=== PATIENT | male | born 1995 | race Caucasian/White ===

== ENCOUNTER 2020-11-15 10:26 | Emergency (ER) | payer BC, OTHER ==
[2020-11-15] MEDS: Lidocaine 1% with EPINEPHrine 1:100,000 20 ML MDV INJECT ONE (11:00)
[2020-11-15] MEDS: Lidocaine 1% with EPINEPHrine 1:100,000 20 ML MDV ONE (11:01)
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
[2020-11-15] MEDS: Sodium Chloride 0.9% 50 ML IV SCH (11:24)
[2020-11-15] MEDS: Iopamidol 755 Mg/ML 75 ML Bottle IVPUSH ONE (11:24)
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
== END 2020-11-15 13:15 | disposition home or self-care (01) ==
LOC: KA.ED 10:26
DX: S31.112A Laceration without foreign body of abdominal wall, epigastric region without penetration into peritoneal cavity, initial encounter (principal); W26.0XXA Contact with knife, initial encounter; Y99.0 Civilian activity done for income or pay
CPT/HCPCS: 12002; 74177; 99283; 99283-25; Q9967

== ENCOUNTER 2021-04-16 19:05 | Emergency (ER) | payer BC, OTHER ==
[2021-04-16] MEDS ORDERED: Sodium Chloride 0.9% 1,000 ML ONE (19:15)
[2021-04-16] MEDS ORDERED: HYDROmorphone 1 MG/ML Syringe ONE (19:15)
[2021-04-16] MEDS ORDERED: Lidocaine 1% with EPINEPHrine 1:100,000 10 ML MDV INJECT ONE (19:20)
[2021-04-16] MEDS ORDERED: Sodium Chloride 0.9% 1,000 ML IV ONE (19:20)
[2021-04-16] MEDS ORDERED: HYDROmorphone 1 MG/ML Syringe IVPUSH ONE ×2 (19:20→20:20)
[2021-04-16] MEDS ORDERED: Lidocaine 1% with EPINEPHrine 1:100,000 10 ML MDV ONE (19:29)
[2021-04-16] MEDS ORDERED: Diphtheria,Pertussis(Acell),Tetanus Vaccine 0.5 ML Syringe IM ONE (20:01)
[2021-04-16] MEDS ORDERED: Bacitracin/Neomycin/Polymyxin B Oint 28.4 GM Tube ONE (20:24)
[2021-04-16] MEDS ORDERED: Cephalexin 250 MG Cap ONE (20:25)
[2021-04-16] MEDS ORDERED: Bacitracin/Neomycin/Polymyxin B Oint 0.9 GM U/D Packet TOP ONE (20:30)
[2021-04-16] MEDS ORDERED: Cephalexin 250 MG Cap PO ONE (20:43)
--- NOTE | 2021-04-16 20:45 | EDM.PDOC ---
ED HPI GENERAL MEDICAL PROBLEM - General Chief Complaint: General Stated Complaint: LACERATION HAND Time Seen by Provider: 04/16/21 19:10 Source of Information: Reports: Patient, Family (mom) History Limitations: Reports: No Limitations - History of Present Illness INITIAL COMMENTS - FREE TEXT/NARRATIVE: Patient presents with laceration of left hand. 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 It bled quite a bit and he feels like he has some decreased sensation distal to the cut. No LOC or other injuries. Last tetanus was 5 years ago. Left Hand Pain Score (Numeric/FACES): 10 - Related Data Allergies Allergy/AdvReac Type Severity Reaction Status Date / Time Bleach (Sodium Hypochlorite) Allergy Rash Verified 04/16/21 19:20 soap Allergy Rash Verified 04/16/21 19:20 albuterol syrup Allergy Rash Uncoded 04/16/21 19:20 Home Meds: Home Meds Fexofenadine/Pseudoephedrine [Puja-D 24 Hour Tablet] 1 each PO DAILY PRN 04/16/21 [History] Fluticasone Propionate [Flonase] 1 spray NASBOTH BEDTIME PRN 04/16/21 [History] Multivitamin 1 each PO DAILY 04/16/21 [History] Past Medical History HEENT History: Reports: None Cardiovascular History: Reports: None Respiratory History: Reports: None Gastrointestinal History: Reports: GERD Genitourinary History: Reports: None Musculoskeletal History: Reports: None Neurological History: Reports: None Psychiatric History: Reports: None Endocrine/Metabolic History: Reports: None Hematologic History: Reports: None Immunologic History: Reports: None Oncologic (Cancer) History: Reports: None Dermatologic History: Reports: None - Infectious Disease History Infectious Disease History: Reports: None - Past Surgical History Head Surgeries/Procedures: Reports: None Musculoskeletal Surgical History: Reports: Other (See Below) Other Musculoskeletal Surgeries/Procedures:: rt arm fracture as a child Social & Family History - Caffeine Use Caffeine Use: Reports: Soda ED ROS GENERAL - Review of Systems Review Of Systems: Comprehensive ROS is negative, except as noted in HPI. ED EXAM, GENERAL - Physical Exam Exam: See Below Exam Limited By: No Limitations General Appearance: Alert, WD/WN, No Apparent Distress Eye Exam: Bilateral Eye: EOMI, Normal Inspection, PERRL Ears: Normal External Exam, Hearing Grossly Normal Nose: Normal Inspection, No Blood Throat/Mouth: Normal Inspection, Normal Lips, Normal Voice, No Airway Compromise Head: Atraumatic, Normocephalic Neck: Normal Inspection, Full Range of Motion Respiratory/Chest: No Respiratory Distress, Lungs Clear, Normal Breath Sounds, No Accessory Muscle Use Cardiovascular: Regular Rate, Rhythm, No Murmur Back Exam: Normal Inspection, Full Range of Motion Extremities: Normal Range of Motion, Normal Capillary Refill, Other (5 cm laceration of ulnar border of left hand palmar side. Resisted pinky flexion and extension and ROM are good. Sensation is decreased but present distal to laceration.) Neurological: Alert, Oriented, Normal Cognition Psychiatric: Normal Affect, Normal Mood Skin Exam: Warm, Dry, Intact, No Rash, Pallor (face) ED GENERAL MEDICAL PROCEDURES - Laceration/Wound Repair Left Anterior Medial Hand Lac/wound length in cm: 5 Appearance: Muscle, Linear, Mildly Contaminated Distal NVT: No Tendon Injury Anesthetic Type: Local Local Anesthesia - Lidocaine (Xylocaine): 1% with EPI Local Anesthetic Volume: 5cc Skin Prep: Chlorhexidine (Hibiciens), Saline Saline irrigation (cc's): 100 Exploration/Debridement/Repair: Wound Explored, In a Bloodless Field, Explored to Base Closed with: Sutures Suture Size: 5-0 # of Sutures: 13 Suture Type: Nylon, Interrupted, Simple Suture Size: 4-0 # of Sutures: 3 (2 deep mattress; 1 running) Repaired with: Vicryl Sterile Dressing Applied: Nurse Tetanus Status Addressed: Yes Complications: No Progress/Comments: Ulnar gutter fiberglass splint fitted and applied with JESSICA wrap. Course - Vital Signs Last Recorded V/S: Last Vital Signs Temp 96.8 F L 04/16/21 19:11 Pulse 100 04/16/21 19:11 Resp 16 04/16/21 19:11 BP 133/74 04/16/21 19:11 Pulse Ox 96 04/16/21 19:11 - Orders/Labs/Meds Orders: Active Orders 24 hr Category Date Time Status Vaccine to be Administered/Admin Charge [RC] ASDIRECTED Care 04/16/21 20:02 Active Labs: Laboratory Tests 04/16/21 Range/Units 19:15 WBC 9.30 (5.00-10.00) 10^3/uL RBC 5.56 (4.50-6.00) 10^6/uL Hgb 15.9 (13.0-17.0) g/dL Hct 49.1 (40.0-52.0) % MCV 88.3 (82.0-92.0) fL MCH 28.6 (27.0-31.0) pg MCHC 32.4 (32.0-36.0) g/dL RDW 13.0 (11.5-14.5) % Plt Count 226 (150-400) 10^3/uL MPV 10.6 H (7.4-10.4) fL Immature Gran % (Auto) 0.1 (0.0-5.0) % Neut % (Auto) 65.0 (50.0-70.0) % Lymph % (Auto) 22.0 (20.0-40.0) % [place] % (Auto) 11.4 H (2.0-8.0) % Eos % (Auto) 1.3 (1.0-3.0) % Baso % (Auto) 0.2 (0.0-1.0) % Neut # (Auto) 6.04 (2.50-7.00) 10^3/uL Lymph # (Auto) 2.05 (1.00-4.00) 10^3/uL [place] # (Auto) 1.06 H (0.10-0.80) 10^3/uL Eos # (Auto) 0.12 (0.10-0.30) 10^3/uL Baso # (Auto) 0.02 (0.00-0.10) 10^3/uL Immature Gran # (Auto) 0.01 (0.00-0.50) 10^3/uL Meds: Medications Discontinued Medications Generic Name Dose Route Start Last Admin Trade Name Ganeshq PRN Reason Stop Dose Admin Hydrocodone Bitart/Acetaminophen 4 tab 04/16/21 20:49 04/16/21 20:50 Acetaminophen/Hydrocodone 325-5 Mg Tab PO 04/16/21 20:50 4 tab ONETIME ONE Administration Hydrocodone Bitart/Acetaminophen Confirm 04/16/21 20:49 Acetaminophen/Hydrocodone 325-5 Mg Tab Administered 04/16/21 20:50 Dose 4 tab .ROUTE .STK-MED ONE Cephalexin Confirm 04/16/21 20:25 04/16/21 20:44 Cephalexin 250 Mg Cap Administered 04/16/21 20:26 Not Given Dose 1,000 mg .ROUTE .STK-MED ONE Cephalexin 1,000 mg 04/16/21 20:43 04/16/21 20:44 Cephalexin 250 Mg Cap PO 04/16/21 20:44 1,000 mg ONETIME ONE Administration Diphtheria/Tetanus/Acell Pertussis 0.5 ml 04/16/21 20:01 04/16/21 20:14 Diphtheria,Pertussis(Acell),Tetanus Vaccine 0.5 Ml Syringe IM 04/16/21 20:02 0.5 ml .ONCE ONE Administration Hydromorphone HCl Confirm 04/16/21 19:15 04/16/21 20:02 Hydromorphone 1 Mg/Ml Syringe Administered 04/16/21 19:16 Not Given Dose 1 mg .ROUTE .STK-MED ONE Hydromorphone HCl 0.5 mg 04/16/21 19:20 04/16/21 19:20 Hydromorphone 1 Mg/Ml Syringe IVPUSH 04/16/21 19:21 0.5 mg ONETIME ONE Administration Hydromorphone HCl 0.5 mg 04/16/21 20:20 04/16/21 20:21 Hydromorphone 1 Mg/Ml Syringe IVPUSH 04/16/21 20:21 0.5 mg ONETIME ONE Administration Sodium Chloride Confirm 04/16/21 19:15 04/16/21 20:03 Normal Saline Administered 04/16/21 19:16 Not Given Dose 1,000 mls @ as directed .ROUTE .STK-MED ONE Sodium Chloride 1,000 mls @ 999 mls/hr 04/16/21 19:20 04/16/21 19:20 Normal Saline IV 04/16/21 20:20 999 mls/hr .BOLUS ONE Administration Lidocaine/Epinephrine Confirm 04/16/21 19:29 04/16/21 20:03 Lidocaine 1% With Epinephrine 1:100,000 10 Ml Mdv Administered 04/16/21 19:30 Not Given Dose 10 ml .ROUTE .STK-MED ONE Lidocaine/Epinephrine 5 ml 04/16/21 19:20 04/16/21 19:35 Lidocaine 1% With Epinephrine 1:100,000 10 Ml Mdv INJECT 04/16/21 19:21 5 ml ONETIME ONE Administration Neomycin/Polymyxin/Bacitracin Confirm 04/16/21 20:24 Bacitracin/Neomycin/Polymyxin B Oint 28.4 Gm Tube Administered 04/16/21 2 0:25 Dose 28.4 gm .ROUTE .[facility] ONE - Re-Assessments/Exams Free Text/Narrative Re-Assessment/Exam: 04/16/21 20:58 Patient pale on arrival so IV saline 1 liter bolus was given. Color improved. Sterile technique was used to close wound as above. Fiberglass ulnar gutter splint applied. Keflex 500 mg po given in ER with one dose for tomorrow morning and Rx for tid x 7 days. Hydrocodone 5/325 #4 sent with patient and Rx for #15 po q 4-6 hours prn. Sling sent with. Patient stable at discharge. Departure - Departure Time of Disposition: 20:37 Disposition: Home, Self-Care 01 Condition: Good Clinical Impression: Hand laceration Qualifiers: Encounter type: initial encounter Foreign body presence: without foreign body Laterality: left Qualified Code(s): S61.412A - Laceration without foreign body of left hand, initial encounter - Discharge Information Instructions: Laceration Care, Adult, [id number] Referrals: Marcela Noe MD [Primary Care Provider] - Additional Instructions: Keep wound clean and dry except for showering or washing under fresh running water. After cleaning, place thin layer of topical antibiotic ointment or petroleum jelly over the wound and dress with sterile bandages. Avoid use of left hand, especially pinky finger. Use splint for support and protection, may leave off for awhile in evening if not using hand. Follow up with your PCP in 10 days for suture removal and recheck of healing progress. If worsening, recheck in clinic or ER as needed. Sepsis Event Note (ED) - Evaluation Sepsis Screening Result: No Definite Risk - Focused Exam Vital Signs: Vital Signs Temp Pulse Resp BP Pulse Ox 04/16/21 19:11 96.8 F L 100 16 133/74 96 - My Orders Last 24 Hours: My Active Orders 04/16/21 20:02 Vaccine to be Administered/Admin Charge [RC] ASDIRECTED - Assessment/Plan Last 24 Hours: My Active Orders 04/16/21 20:02 Vaccine to be Administered/Admin Charge [RC] ASDIRECTED
[2021-04-16] MEDS ORDERED: Acetaminophen/HYDROcodone 325-5 MG Tab ONE (20:49)
[2021-04-16] MEDS ORDERED: Acetaminophen/HYDROcodone 325-5 MG Tab PO ONE (20:49)
[2021-04-16] MEDS ORDERED: Ondansetron 4 MG Tab.DIS ONE (21:49)
[2021-04-16] MEDS ORDERED: Ondansetron 4 MG Tab.DIS PO ONE (22:04)
== END 2021-04-16 20:55 | disposition home or self-care (01) ==
LOC: KA.ED 19:05
DX: S61.412A Laceration without foreign body of left hand, initial encounter (principal); Z91.048 Other nonmedicinal substance allergy status; Z88.8 Allergy status to other drugs, medicaments and biological substances; Z23 Encounter for immunization; W26.8XXA Contact with other sharp object(s), not elsewhere classified, initial encounter
CPT/HCPCS: 12042; 36415; 85025; 90471; 90715; 96374; 96376; 99283; A9270; J1170; J7030; 12002

== ENCOUNTER 2021-07-07 17:00 | Emergency (ER) | payer BC ==
[2021-07-07] MEDS ORDERED: Sodium Chloride 0.9% 10 ML Syringe FLUSH PRN (17:35)
[2021-07-07 18:10] LABS: ANION GAP 12.5 mmol/L (5-15); CHLORIDE,CL 101 mmol/L (98-107); SODIUM,NA 140 mmol/L (136-145)
[2021-07-07 19:35] LABS: CORONAVIRUS COVID-19 NAA POSITIVE (NEGATIVE)
== END 2021-07-07 19:10 | disposition home or self-care (01) ==
LOC: KA.ED 17:00
DX: U07.1 COVID-19 (principal); Z91.048 Other nonmedicinal substance allergy status; Z88.8 Allergy status to other drugs, medicaments and biological substances
CPT/HCPCS: 0240U; 36415; 80053; 83735; 85025; 99283; 99284-25

== ENCOUNTER 2023-10-17 06:24 | Emergency (ER) | payer BC ==
[2023-10-17] MEDS: methylPREDNISolone Sodium Succinate 125 MG/2 ML SDV IM ONE (06:58)
[2023-10-17] MEDS: Penicillin V Potassium 250 MG Tab PO STA (07:18)
== END 2023-10-17 07:39 | disposition home or self-care (01) ==
LOC: KA.ED 06:24
DX: K13.79 Other lesions of oral mucosa (principal); Z88.8 Allergy status to other drugs, medicaments and biological substances; Z91.048 Other nonmedicinal substance allergy status; Z79.899 Other long term (current) drug therapy; Z20.822 Contact with and (suspected) exposure to COVID-19
CPT/HCPCS: 87070; 87205; 96372; 99283; A9270-GY; J2930; U0002

== ENCOUNTER 2024-05-06 09:00 | Emergency (ER) | payer BC ==
[2024-05-06] MEDS: Lidocaine 1% 5 ML VIAL INJECT ONE ×2 (09:32→09:48)
[2024-05-06] MEDS: Lidocaine 1% 5 ML VIAL ONE (09:33)
== END 2024-05-06 10:35 | disposition home or self-care (01) ==
LOC: KA.ED 09:00
DX: S61.210A Laceration without foreign body of right index finger without damage to nail, initial encounter (principal); E66.9 Obesity, unspecified; Z68.35 Body mass index [BMI] 35.0-35.9, adult; Z88.8 Allergy status to other drugs, medicaments and biological substances; Z91.048 Other nonmedicinal substance allergy status; Z79.899 Other long term (current) drug therapy; W26.0XXA Contact with knife, initial encounter
CPT/HCPCS: 12001; 99282; J3490